=== PATIENT | male | born 1985 | race Caucasian/White ===

== ENCOUNTER 2019-11-05 13:59 | Emergency (ER) | payer OTHER ==
[~2019-11-05] VITALS: Ht 170.2 cm; Wt 66.2 kg
[2019-11-05 14:03] VITALS: BP 160/96; Ht 170.2 cm; Wt 66.2 kg
== END 2019-11-05 17:05 | disposition other institution (70) ==
LOC: ED 13:59
DX: Z02.89 Encounter for other administrative examinations (principal)